=== PATIENT | male | born 1990 | race Caucasian/White ===

== ENCOUNTER 2017-08-02 06:00 | Emergency (ER) | payer MEDICAID ==
[2017-08-02 06:59] VITALS: BP 126/76
--- NOTE | 2017-08-02 07:49 | ED ---
Back Pain - HPI Summary HPI Summary: Patient is a 27-year-old male presenting to the ED with mid back pain after he was wrestling with a friend several days ago. He states he twisted wrong and feels muscle spasms to the bilateral sides of the spine. Denies any chest pain or cardiac history. Denies any shortness of breath. He has been attending work , eating, drinking and breathing okay without difficulties. He states he is otherwise at his baseline. Denies any fevers, sweats, chills. He takes no medications. Has no back problems or history of such. He has not tried anything [id number] for relief. He has tried ice with minimal relief. He states he lifts heavy boxes at work and is unable to attend today and is requesting a note. - History of Current Complaint Chief Complaint: EDBackInjuryPain Stated Complaint: BACK PAIN Time Seen by Provider: 08/02/17 06:14 Hx Obtained From: Patient Onset/Duration: Sudden Onset Onset/Duration: Started Days Ago Timing: Intermittent Back Pain Location: Is Discrete @ - midback Severity Initially: Mild Severity Currently: Mild Pain Intensity: 3 Pain Scale Used: 0-10 Numeric Character: Aching Aggravating Symptom(s): Movement, Lifting, Bending Alleviating Symptom(s): Rest, Position Associated Signs And Symptoms: Positive: Negative. Negative: Redness, Bruising , Fever, Weakness, Numbness, Bladder Incontinence, Bowel Incontinence, Weight Loss, Pain with Weight Bearing - Risk Factors AAA Risk Factors: Negative TAD Risk Factors: Negative Cauda Equina Risk Factors: Negative Epidural Abscess Risk Factors: Negative - Allergies/Home Medications Allergies/Adverse Reactions: Allergies Allergy/AdvReac Type Severity Reaction Status Date / Time Penicillins Allergy Rash Verified 08/02/17 06:03 PMH/Surg Hx/FS Hx/Imm Hx Previously Healthy: Yes - Immunization History Hx Pertussis Vaccination: No Immunizations Up to Date: Unable to Obtain/Confirm Infectious Disease History: No Infectious Disease History: Denies: Traveled Outside the [place] in Last 30 Days - Social History Occupation: Employed Full-time Lives: With Family Alcohol Use: Occasionally Hx Substance Use: No Substance Use Type: Reports: None Hx Tobacco Use: Yes Smoking Status (MU): Heavy Every Day Tobacco Smoker Review of Systems Constitutional: Negative Negative: Fever, Chills, Fatigue Negative: Photophobia, Blurred Vision Cardiovascular: Negative Respiratory: Negative Negative: Shortness Of Breath, Cough Negative: Abdominal Pain, Vomiting, Diarrhea, Nausea Genitourinary: Negative Positive: no symptoms reported, see HPI Positive: Arthralgia, Myalgia Negative: Rash, Bruising Neurological: Negative All Other Systems Reviewed And Are Negative: Yes Physical Exam Triage Information Reviewed: Yes Vital Signs On Initial Exam: Initial Vitals Temp Pulse Resp BP Pulse Ox 97.2 F 80 16 122/80 98 08/02/17 06:00 08/02/17 06:00 08/02/17 06:00 08/02/17 06:00 08/02/17 06:00 Vital Signs Reviewed: Yes Appearance: Positive: Well-Appearing, Well-Nourished Skin: Positive: Warm, Skin Color Reflects Adequate Perfusion Head/Face: Positive: Normal Head/Face Inspection Eyes: Positive: EOMI, ANDREW Neck: Positive: Supple, No Lymphadenopathy Respiratory/Lung Sounds: Positive: Clear to Auscultation, Breath Sounds Present Cardiovascular: Positive: RRR, Pulses are Symmetrical in both Upper and Lower Extremities Neurological: Positive: Sensory/Motor Intact, Alert, Oriented to Person Place, Time, Speech Normal Psychiatric: Positive: Affect/Mood Appropriate AVPU Assessment: Alert Diagnostics - Vital Signs Vital Signs Temp Pulse Resp BP Pulse Ox 08/02/17 06:57 97.4 F 84 16 126/76 99 08/02/17 06:00 97.2 F 80 16 122/80 98 - Laboratory Lab Statement: Any lab studies that have been ordered have been reviewed, and results considered in the medical decision making process. Back Pain Course/Dx - Course Course Of Treatment: During the course of treatment, the patient's evaluated for mid back pain. There is no pain to the spine. No tenderness to palpation. There is no step-off. No abnormalities are noted. Denies any back spasms currently. He states it is difficult for him to sleep. I have offered Flexeril and a steroid and encouraged him to follow back up in 6 weeks for furthering symptoms as we will do imaging at that time. He is referred back to his PCP. He is okay with this plan and discharge. I have encouraged heat and given him a note for work. - Diagnoses Differential Diagnosis/HQI/PQRI: Positive: Herniated Disc, Strain, Sprain Provider Diagnoses: Muscle spasm Discharge - Sign-Out/Discharge Documenting (check all that apply): Discharge - Discharge Plan Condition: Stable Disposition: HOME Prescriptions: Cyclobenzaprine TAB* [Flexeril TAB*] 10 mg PO BID PRN #10 tab PRN Reason: Spasms predniSONE TAB* [Deltasone TAB*] 50 mg PO DAILY #5 tab MDD 1 Patient Education Materials: Muscle Spasm (ED) Forms: *Work Release Referrals: Kory BAHPKarmen [Primary Care Provider] - Additional Instructions: Flexeril up to twice daily for spasms Prednisone once daily in the AM Heat to the area Ibuprofen and tylenol - use intermittently every 3 hours stretch - Billing Disposition and Condition Condition: STABLE Disposition: HOME
== END 2017-08-02 06:57 | disposition home or self-care (01) ==
LOC: ED 06:00
DX: M62.830 Muscle spasm of back (principal); Z72.0 Tobacco use
CPT/HCPCS: 99282

== ENCOUNTER 2017-10-20 11:46 | Emergency (ER) | payer MEDICAID ==
[2017-10-20 12:03] VITALS: BP 120/73
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
--- NOTE | 2017-10-21 08:25 | RAD ---
Indication: Left ankle pain. 3 views of left ankle demonstrates no fracture. No other bone or joint abnormality is identified. IMPRESSION: No fracture of the left ankle is noted.
== END 2017-10-20 14:45 | disposition left against medical advice (07) ==
LOC: ED 11:46
DX: S96.912A Strain of unspecified muscle and tendon at ankle and foot level, left foot, initial encounter (principal); X50.0XXA Overexertion from strenuous movement or load, initial encounter; Y93.I9 Activity, other involving external motion; Y92.9 Unspecified place or not applicable; E10.9 Type 1 diabetes mellitus without complications; F17.200 Nicotine dependence, unspecified, uncomplicated; Z79.4 Long term (current) use of insulin; Z96.41 Presence of insulin pump (external) (internal); Z88.0 Allergy status to penicillin
CPT/HCPCS: 99282

== ENCOUNTER → 2018-11-11 16:09 | Emergency (ER) | payer OTHER ==
[~2018-11-11 16:09] MED LIST: HYDROcodone/ACETAMIN 5-325 MG* 1 TAB PO ONE
[2018-11-11 18:11] VITALS: BP 104/61
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
== END | disposition home or self-care (01) ==
LOC: ED 16:09
DX: S92.002A Unspecified fracture of left calcaneus, initial encounter for closed fracture (principal); W22.8XXA Striking against or struck by other objects, initial encounter; Y92.9 Unspecified place or not applicable; Y99.9 Unspecified external cause status; F17.210 Nicotine dependence, cigarettes, uncomplicated; E10.9 Type 1 diabetes mellitus without complications; Z96.41 Presence of insulin pump (external) (internal); Z79.4 Long term (current) use of insulin; Z88.0 Allergy status to penicillin
CPT/HCPCS: 99283